=== PATIENT | female | born 1990 | race Two or more races ===

== ENCOUNTER 2016-11-30 10:28 | Emergency (ER) | payer MEDICAID, OTHER ==
[~2016-11-30] VITALS: Ht 180.3 cm; Wt 63.5 kg
[2016-11-30 10:55] VITALS: BP 119/86
[2016-11-30] MEDS ORDERED: SODIUM CHLORIDE 0.9% 1,000 ML IVB ONE (11:08)
[2016-11-30 11:27] LABS: Urine Bilirubin Negative (Negative); Urine Color Yellow (Yellow); Urine Glucose Normal (Normal); Urine Ketone Negative (Negative); Urine Nitrite Negative (Negative); Urine RBC 12 /hpf (0 - 4); Urine Squamous Epithelial Cell FEW /hpf (<5); Urine Urobilinogen Normal (Negative)
[2016-11-30 11:37] LABS: Urine Blood 3+ /uL (Negative)
[2016-11-30 11:41] LABS: Basophils # (auto) 0 uL; Basophils % (auto) 0.4 % (0.0-2.0); Eosinophils # (auto) 0.1 uL; Eosinophils % (auto) 2.4 % (0.0-7.0); Hematocrit 38.8 % (36.0-46.0); Hemoglobin 12.6 g/dL (12.2-16.2); Lymphocytes # (auto) 1.4 uL; Lymphocytes % (auto) 23.9 % (10.0-50.0); Mean Corpuscular Hemoglobin 29.4 pg (28.0-32.0); Mean Corpuscular Hgb Conc. 32.6 g/dL (32.0-36.0); Mean Corpuscular Volume 90.3 fL (80.0-100.0); Mean Platelet Volume 7.9 fL (7.4-10.4); Monocytes # (auto) 0.4 uL; Monocytes % (auto) 6.5 % (0.0-12.0); Neutrophils # (auto) 3.8 uL; Neutrophils % (auto) 66.8 % (37.0-80.0); Platelet Count (auto) 235 10^3/uL (140-450); Red Cell Distribution Width 13.4 % (11.6-16.0); White Blood Cell 5.7 10^3/uL (4.4-10.8)
[2016-11-30 12:26] LABS: Albumin 4.1 g/dL (3.4-5.0); BUN/Creatinine Ratio 15.9; Bilirubin, Total 0.5 mg/dL (0.2-1.0); Calcium 8.9 mg/dL (8.5-10.1); Potassium 3.5 mmol/L (3.5-5.1); Total Protein 7.3 g/dL (6.4-8.2)
== END 2016-11-30 13:34 | disposition home or self-care (01) ==
LOC: ER 10:28
DX: N93.9 Abnormal uterine and vaginal bleeding, unspecified (principal); F17.210 Nicotine dependence, cigarettes, uncomplicated
CPT/HCPCS: 36415; 80053; 81001; 84702; 85025; 94761

== ENCOUNTER 2019-06-20 13:15 | Emergency (ER) | payer MEDICAID ==
[~2019-06-20] VITALS: Ht 180.3 cm; Wt 59.0 kg
[2019-06-20 14:56] VITALS: BP 133/87
== END 2019-06-20 15:47 | disposition home or self-care (01) ==
LOC: ER 13:18
DX: S29.9XXA Unspecified injury of thorax, initial encounter (principal); F17.210 Nicotine dependence, cigarettes, uncomplicated; F12.10 Cannabis abuse, uncomplicated; Y08.89XA Assault by other specified means, initial encounter; Y93.89 Activity, other specified; Y99.8 Other external cause status; Y92.89 Other specified places as the place of occurrence of the external cause
CPT/HCPCS: 71046

== ENCOUNTER 2022-02-28 15:08 | Emergency (ER) | payer MEDICAID ==
[~2022-02-28] VITALS: Ht 180.3 cm; Wt 59.0 kg
[2022-02-28] MEDS ORDERED: SODIUM CHLORIDE 0.9% 1,000 ML IV ONE ×2 (15:45)
[2022-02-28 16:37] LABS: Basophils # (auto) 0.1 10 ^3/uL (0-0.2); Basophils % (auto) 0.5 % (0.0-2.0); Eosinophils # (auto) 0.2 10 ^3/uL (0-0.8); Hematocrit 34.8 % (36.0-46.0); Hemoglobin 11.4 g/dL (12.2-16.2); Lymphocytes # (auto) 1.3 10 ^3/uL (0.4-5.4); Lymphocytes % (auto) 7.9 % (10.0-50.0); Mean Corpuscular Hgb Conc. 32.7 g/dL (32.0-36.0); Mean Corpuscular Volume 88.7 fL (80.0-100.0); Monocytes % (auto) 5.9 % (0.0-12.0); Neutrophils # (auto) 13.7 10 ^3/uL (1.6-8.6); Neutrophils % (auto) 84.7 % (37.0-80.0); Nucleated Red Blood Cells % 0.2 %; Red Blood Cells 3.92 10^6/uL (4.0-5.20); Red Cell Distribution Width 14.3 % (11.8-14.3); White Blood Cell 16.2 10^3/uL (4.4-10.8)
[2022-02-28] MEDS ORDERED: ACETAMINOPHEN 500 MG TAB PO ONE (17:00)
[2022-02-28 17:04] LABS: Albumin 2.9 g/dL (3.4-5.0); BUN/Creatinine Ratio 11.3; Calcium 8.3 mg/dL (8.5-10.1); Potassium 4.3 mmol/L (3.5-5.1)
[2022-02-28 17:07] LABS: Bilirubin, Total 0.2 mg/dL (0.2-1.0); Total Protein 6.1 g/dL (6.4-8.2)
[2022-02-28 18:46] VITALS: BP 105/62
== END 2022-02-28 18:57 | disposition left against medical advice (07) ==
LOC: ER 15:08
DX: O20.8 Other hemorrhage in early pregnancy (principal); O26.51 Maternal hypotension syndrome, first trimester; F17.210 Nicotine dependence, cigarettes, uncomplicated; Z3A.09 9 weeks gestation of pregnancy
CPT/HCPCS: 36415; 70450; 76801; 80053; 84702; 85025; 86850; 86870; 86900; 86901; 93005; 96360; 96361; 99285; J7030